=== PATIENT | female | born 1995 | race Caucasian/White ===

== ENCOUNTER 2021-11-03 18:28 | Emergency (ER) | payer BC ==
[~2021-11-03] VITALS: Ht 157.5 cm; Wt 68.0 kg
[2021-11-03] MEDS ORDERED: PROZAC20 M1 PO (18:39)
[2021-11-03] MEDS ORDERED: BIRTH CONTROL (18:40)
[2021-11-03 19:41] LABS: INFLUENZA A ANTIGEN Positive (Negative); INFLUENZA B ANTIGEN Negative (Negative)
[2021-11-03 20:19] VITALS: BP 107/67
== END 2021-11-03 20:20 | disposition left against medical advice (07) ==
LOC: M.ERS 18:28
PROVIDERS: Emergency Medicine
DX: R11.2 Nausea with vomiting, unspecified (principal); Z20.822 Contact with and (suspected) exposure to COVID-19; Z53.21 Procedure and treatment not carried out due to patient leaving prior to being seen by health care provider